=== PATIENT | female | born 1985 | race Two or more races ===

== ENCOUNTER 2023-02-23 08:50 | Emergency (ER) | payer MEDICAID ==
[~2023-02-23] VITALS: Ht 170.2 cm; Wt 72.6 kg
[2023-02-23 09:12] VITALS: BP 126/74
--- NOTE | 2023-02-23 10:09 | NUR ---
Patient discharged to home in stable condition. Written and verbal after care instructions given. Patient verbalizes understanding of instruction. Pt was given Cast Shoe
== END 2023-02-23 10:10 | disposition home or self-care (01) ==
LOC: ER 08:50
DX: S90.122A Contusion of left lesser toe(s) without damage to nail, initial encounter (principal); W22.8XXA Striking against or struck by other objects, initial encounter; Y93.89 Activity, other specified; Y92.89 Other specified places as the place of occurrence of the external cause; Y99.8 Other external cause status
CPT/HCPCS: 73660-TC